=== PATIENT | female | born 1950 | race Caucasian/White ===

== ENCOUNTER → 2017-05-14 | Outpatient (CLI) | payer OTHER ==
--- NOTE | 2017-05-14 11:10 | KCIC ---
Clinical Indication: Left lower extremity pain diffusely. Technique: Study is dated May 14, 2017. Grayscale, color flow and spectral waveform analysis was performed of the left lower extremity with and without compression. Findings: There is normal compressibility of all visualized vein segments. No evidence of DVT is present on grayscale or color images. There is normal phasicity of waveform. There is normal augmentation. Impression: No evidence of deep vein thrombosis. Electronically signed by: Deshawn Nunez MD (05/14/2017 11:07 AM) [place] [id number]
== END | disposition home or self-care (01) ==
LOC: KCIC US 10:14
PROVIDERS: ATTEND Nurse Practitioner Family
DX: M79.605 Pain in left leg (principal)
CPT/HCPCS: 93971